=== PATIENT | female | born 1960 | race Two or more races ===

== ENCOUNTER 2016-04-29 23:26 | Emergency (ER) | payer SELFPAY ==
[~2016-04-29] VITALS: Ht 165.1 cm; Wt 81.6 kg
[2016-04-30] LABS: Basophils # (auto) 0 uL; Basophils % (auto) 0.3 % (0.0-2.0); Eosinophils # (auto) 0.2 uL; Eosinophils % (auto) 2.2 % (0.0-7.0); Hematocrit 40.5 % (36.0-46.0); Hemoglobin 12.7 g/dL (12.2-16.2); Lymphocytes # (auto) 1.8 uL; Lymphocytes % (auto) 18.3 % (10.0-50.0); Mean Corpuscular Hemoglobin 29.2 pg (28.0-32.0); Mean Corpuscular Hgb Conc. 31.4 g/dL (32.0-36.0); Mean Corpuscular Volume 93.2 fL (80.0-100.0); Mean Platelet Volume 8.2 fL (7.4-10.4); Monocytes # (auto) 0.6 uL; Monocytes % (auto) 6.2 % (0.0-12.0); Platelet Count (auto) 380 10^3/uL (140-450); Red Cell Distribution Width 13.2 % (11.6-16.0); White Blood Cell 9.6 10^3/uL (4.4-10.8)
[2016-04-30 00:41] LABS: INR 1.04 (0.9-1.15); Partial Thromboplastin Time 26.8 sec (22.64-33.71); Prothrombin Time 10.7 sec (9.37-12.3)
[2016-04-30 03:40] LABS: Albumin 3.9 g/dL (3.4-5.0); BUN/Creatinine Ratio 15.5; Calcium 9.1 mg/dL (8.5-10.1)
[2016-04-30 03:43] LABS: Bilirubin, Total 0.3 mg/dL (0.2-1.0)
[2016-04-30] MEDS ORDERED: SODIUM CHLORIDE 0.9% 1,000 ML IV ONE (08:09)
[2016-04-30] MEDS ORDERED: ONDANSETRON HCL 4 MG/2 ML VIAL IV ONE (08:15)
[2016-04-30] MEDS ORDERED: HYDROmorphone HCL 2 MG/ML VL IV ONE (08:15)
[2016-04-30 09:35] VITALS: BP 116/80
== END 2016-04-30 10:30 | disposition home or self-care (01) ==
LOC: ER 23:34
DX: S22.42XA Multiple fractures of ribs, left side, initial encounter for closed fracture (principal); W19.XXXA Unspecified fall, initial encounter; Y93.89 Activity, other specified; Y99.8 Other external cause status; Y92.89 Other specified places as the place of occurrence of the external cause
CPT/HCPCS: 36415; 70450; 71250; 72125; 72192; 80053; 84484; 85025; 85610; 85730; 93005; 96361; 96374; 96375; 99285; J1170; J2405; J7030